=== PATIENT | female | born 1940 | race Caucasian/White ===

== ENCOUNTER 2018-05-06 10:32 | Day surgery (SDC) | payer MEDICARE, OTHER ==
[~2018-05-06 10:32] MED LIST: BENICAR40 MG PO; HYDROCHLOROT12.5 MG PO; K-TABS10 MEQ PO; LATANOPROST0.005 % OU; SIMBRINZA1 SUS OD
[2018-05-06 14:45] VITALS: BP 131/72
== END 2018-05-06 14:56 | disposition home or self-care (01) ==
LOC: ENDO 10:32 → ORM 14:45 → ENDO 14:56 → ORM 15:15
PROVIDERS: ATTEND Internal Medicine Gastroenterology
PROC: 0DJD8ZZ Inspection of Lower Intestinal Tract, Via Natural or Artificial Opening Endoscopic (ICD-10-PCS; principal; 2018-05-06)
DX: Z12.11 Encounter for screening for malignant neoplasm of colon (principal); K64.4 Residual hemorrhoidal skin tags; K57.30 Diverticulosis of large intestine without perforation or abscess without bleeding; Q43.8 Other specified congenital malformations of intestine; K64.8 Other hemorrhoids; K63.89 Other specified diseases of intestine; I10 Essential (primary) hypertension; Z86.010 Personal history of colon polyps; Z85.3 Personal history of malignant neoplasm of breast; Z90.13 Acquired absence of bilateral breasts and nipples